=== PATIENT | male | born 1960 | race Caucasian/White ===

== ENCOUNTER 2018-03-09 04:36 | Emergency (ER) | payer SELFPAY ==
[2018-03-09] MEDS ORDERED: BUTA1CAP6 PO ×2 (04:44→06:10)
[2018-03-09] MEDS ORDERED: WARF-1 PO (04:52)
--- NOTE | 2018-03-09 05:00 | ER Report ---
History and Physical Time Seen By MD: 04:59 Hx. of Stated Complaint: "SPONTANEOUS INTRACRANIAL HYPOTENSION" WORST EVER HEADACHE; SCHEDULED FOR A LP TUESDAY TO SEE IF CSF LEAKAGE FROM [facility] HPI/ROS CHIEF COMPLAINT: Severe headache HISTORY OF PRESENT ILLNESS: This is a 57 year old male. He has a history of severe chronic headaches. 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 He has a workup scheduled with neurosurgery at [facility] in one week. He is taking Fioricet, about 6-8 tablets daily. Still having severe headache. Trying to drink plenty of fluids. He is just not sure he can take the pain over the next week while waiting for the workup. He is going to be having a CT myelogram to try to determine if he has a leak and if a blood patch for fibrin patch will help. He has been taking Tramadol and Compazine, without success and with continued vomiting from the Tramadol. Allergies: Coded Allergies: No Known Drug Allergies (Unverified , 03/09/18) Home Meds Active Scripts Butalb/Acetaminophen/Caffeine (FIORICET 50-300-40) 1 Each Capsule, 1-2 EACH PO Q4H Y for HEADACHE, #60 CAPSULE 0 Refills Prov:ANDRES SANTOS MD 03/09/18 Lorazepam (LORAZEPAM) 0.5 Mg Tablet, 0.5 MG PO Q6H Y for ANXIETY, #14 TAB 0 Refills Prov:ANDRES SANTOS MD 03/09/18 Reported Medications Warfarin Sodium (COUMADIN) 5 Mg Tablet, 5 MG PO QDAY 03/09/18 Butalb/Acetaminophen/Caffeine (FIORICET 50-300-40) 1 Each Capsule, 1-2 EACH PO Q4H, CAPSULE 03/09/18 Reviewed Nurses Notes: Yes Hx Substance Use Disorder: No Hx Alcohol Use: No Constitutional Vital Sign - Last 24 Hours 03/09/18 03/09/18 03/09/18 03/09/18 04:41 04:42 04:45 04:51 Temp 97.9 Pulse 79 ??? Resp 14 B/P (MAP) 138/100 138/100 (113) 134/96 (109) Pulse Ox 92 91 O2 Delivery Room Air 03/09/18 03/09/18 03/09/18 03/09/18 05:00 05:06 05:15 05:21 Pulse 72 70 B/P (MAP) 131/91 (104) 137/89 (105) Pulse Ox 90 91 03/09/18 03/09/18 03/09/18 03/09/18 05:30 05:36 05:45 05:51 Pulse 69 ??? B/P (MAP) 133/89 (104) 132/85 (101) Pulse Ox 91 03/09/18 06:00 B/P (MAP) 127/81 (96) Physical Exam General: Alert, tearful at times. Very anxious. Neuro: Alert and oriented, no deficits noted. No other exam done Medical Decision Making ED Course/Re-evaluation ED Course Discussed options with the patient. We did discuss the potential for other causes of headache, such a bleeding in the brain, especially given his Warfarin use. I discussed doing a CT scan, but the patient states that the headache is worse than usual, but the same headache that he has been dealing with and he prefers not to do a CT scan at this time. We talked about options to get him through until he sees the neurosurgeon. We will give a refill of the Fioricet. He will increase caffeine use as well. Continue oral hydration. Provided some Lorazepam as well. Follow-up as planned next week. Decision to Disposition Date: Mar 09, 2018 Decision to Disposition Time: 06:05 Depart Departure Latest Vital Signs Vital Signs Date Time Temp Pulse Resp B/P (MAP) Pulse Ox O2 Delivery O2 Flow Rate FiO2 03/09/18 06:00 127/81 (96) 03/09/18 05:51 ??? 03/09/18 05:36 91 03/09/18 04:41 97.9 14 Room Air Impression: Primary Impression: Headache Condition: Improved Disposition: HOME OR SELF-CARE New Scripts Butalb/Acetaminophen/Caffeine (FIORICET 50-300-40) 1 Each Capsule 1-2 EACH PO Q4H Y for HEADACHE, #60 CAPSULE 0 Refills Prov: ANDRES SANTOS MD 03/09/18 Lorazepam (LORAZEPAM) 0.5 Mg Tablet 0.5 MG PO Q6H Y for ANXIETY, #14 TAB 0 Refills Prov: ANDRES SANTOS MD 03/09/18 Additional Instructions: Follow-up with the neurosurgeon as planned. You can safely take 1-2 of the Fioricet tablets every 6 hours. The max you would be able to take is 12 tablets a day, but recommend staying below 10. You can increase your caffeine intake to help with headaches. Recommended for Spontaneous Intracranial Hypotension would be 200-300mg of Caffeine every 8 hours. Continue to increase oral fluids. Periods of lying flat can sometimes help as well. To help with anxiety surrounding the headaches and medications, you can try taking Lorazepam 0.5mg tablets. Take 1/2 tablet every 6 hours as needed for this. Problem Qualifiers Primary Impression: Headache Headache type: other headache syndrome Qualified Codes: G44.89 - Other headache syndrome ANDRES SANTOS MD Mar 09, 2018 05:00
[2018-03-09 06:00] VITALS: BP 127/81
[2018-03-09] MEDS ORDERED: LORA-630 PO (06:10)
[2018-03-09] MEDS ORDERED: LORazepam 0.5 MG TAB PO ONE (06:15)
== END 2018-03-09 06:25 | disposition home or self-care (01) ==
LOC: ER 04:40
DX: G44.89 Other headache syndrome (principal)
CPT/HCPCS: 99282